=== PATIENT | female | born 1945 | race Caucasian/White ===

== ENCOUNTER 2020-07-16 08:53 | Emergency (ER) | payer MEDICARE, BC ==
--- NOTE | 2020-07-16 09:08 | EDM.PDOC ---
ED HPI GENERAL MEDICAL PROBLEM - General Chief Complaint: Cardiovascular Problem Stated Complaint: LOW BLOOD LEVEL SENT BY [facility] Time Seen by Provider: 07/16/20 09:06 - History of Present Illness INITIAL COMMENTS - FREE TEXT/NARRATIVE: 75-year-old female presents to the emergency room for a blood transfusion. Patient was seen in the surgery clinic over at [place] by Dr. Delong team patient is on chronic Plavix therapy and aspirin and has was found to have a low hemoglobin hematocrit. She is anticipating a colonoscopy coming up. The patient thought this was scheduled for Monday however from discussion with Dr. Hinds earlier today it was my understanding he may try and move this up to tomorrow. Patient has a cardiac history however she is ambulatory does not have breathing difficulties with ambulation and is fully functional. Patient takes Plavix she states once every other day and aspirin every other day. Labs done this morning show a hemoglobin of 7.2 and hematocrit of 24.3. With discussion with surgery it is thought best that the patient received a single unit of packed red cells. - Related Data Allergies Allergy/AdvReac Type Severity Reaction Status Date / Time No Known Allergies Allergy Verified 07/16/20 09:01 Home Meds: Home Meds Aspirin 81 mg PO BRK 08/31/16 [History] Cholecalciferol (Vitamin D3) [Vitamin D] 5,000 unit PO DAILY 08/31/16 [History] Clopidogrel [Plavix] 75 mg PO ASDIRECTED 08/31/16 [History] Fish Oil/DHA/EPA [Fish Oil 1,200 MG] 1 cap PO BID 08/31/16 [History] Multivitamin with Minerals [Multiple Vitamin] 1 tab PO DAILY 08/31/16 [History] Pravastatin [Pravachol] 40 mg PO BEDTIME 08/31/16 [History] Ubidecarenone [Coq-10] 400 mg PO BEDTIME 08/31/16 [History] amLODIPine [Norvasc] 5 mg PO DAILY 08/31/16 [History] hydroCHLOROthiazide [Hydrochlorothiazide] 12.5 mg PO DAILY 08/31/16 [History] Potassium Chloride [Klor-Con M20] 20 meq PO BID #4 tab.er 07/16/20 [Rx] Past Medical History HEENT History: Reports: Impaired Vision Other HEENT History: wears glasses Cardiovascular History: Reports: High Cholesterol - Past Surgical History Cardiovascular Surgical History: Reports: Other (See Below) Social & Family History - Caffeine Use Caffeine Use: Reports: Coffee ED ROS GENERAL - Review of Systems Review Of Systems: See Below Constitutional: Reports: No Symptoms Respiratory: Reports: No Symptoms Cardiovascular: Reports: No Symptoms GI/Abdominal: Reports: No Symptoms : Reports: No Symptoms Musculoskeletal: Reports: No Symptoms Neurological: Reports: No Symptoms ED EXAM, GENERAL - Physical Exam Exam: See Below Exam Limited By: No Limitations General Appearance: Alert, No Apparent Distress Head: Atraumatic, Normocephalic Neck: Normal Inspection, Supple, Non-Tender, Full Range of Motion Respiratory/Chest: No Respiratory Distress, Lungs Clear, Normal Breath Sounds Cardiovascular: Regular Rate, Rhythm, No Edema, No Murmur GI/Abdominal: Normal Bowel Sounds, Soft, Non-Tender Extremities: Normal Inspection, No Pedal Edema Neurological: Alert, Oriented, Normal Cognition Course - Vital Signs Last Recorded V/S: Last Vital Signs Temp 36.9 C 07/16/20 15:21 Pulse 69 07/16/20 15:21 Resp 20 07/16/20 15:21 BP 97/75 07/16/20 15:21 Pulse Ox 96 07/16/20 14:39 - Orders/Labs/Meds Orders: Active Orders 24 hr Category Date Time Status Sodium Chloride 0.9% [Normal Saline] 250 ml Med 07/16/20 12:15 Active IV ASDIRECTED Transfuse RBC [Transfuse Red Blood Cells] [COMM] Stat Oth 07/16/20 09:37 Ordered Medication Orders Sodium Chloride (Normal Saline) 250 mls @ 10 mls/hr IV ASDIRECTED [facility] Last Admin: 07/16/20 13:53 Dose: 10 mls/hr Documented by: EDIE Labs: Laboratory Tests 07/16/20 07/16/20 07/16/20 Range/Units 09:10 09:10 12:21 Sodium 138 (136-145) mEq/L Potassium 2.7 L (3.5-5.1) mEq/L Chloride 100 (98-107) mEq/L Carbon Dioxide 26 (21-32) mEq/L Anion Gap 14.7 (5-15) BUN 14 (7-18) mg/dL Creatinine 0.9 (0.55-1.02) mg/dL Est Cr Clr Drug Dosing 35.34 mL/min Estimated GFR (MDRD) > 60 (>60) mL/min BUN/Creatinine Ratio 15.6 (14-18) Glucose 129 H (83-115) mg/dL Calcium 9.1 (8.5-10.1) mg/dL Blood Type O NEGATIVE Gel Antibody Screen Negative Crossmatch See Detail See Detail Meds: Medications Generic Name Dose Route Start Last Admin Trade Name Freq PRN Reason Stop Dose Admin Sodium Chloride 250 mls @ 10 mls/hr 07/16/20 12:15 07/16/20 13:53 Normal Saline IV 10 mls/hr ASDIRECTED LAURA Administration Discontinued Medications Generic Name Dose Route Start Last Admin Trade Name Freq PRN Reason Stop Dose Admin Potassium Chloride 10 meq/ 100 mls @ 100 mls/hr 07/16/20 10:30 07/16/20 11:47 Premix IV 07/16/20 12:29 100 mls/hr Q1H LAURA Administration Potassium Chloride 40 meq 07/16/20 10:22 07/16/20 10:33 Klor-Con M20 PO 07/16/20 10:23 40 meq ONETIME ONE Administration - Re-Assessments/Exams Free Text/Narrative Re-Assessment/Exam: 07/16/20 15:44 The patient is nearing completion of her transfusion at this point. I was able to discuss the situation with Dr. Hinds,, who is now planning on doing the colonoscopy next week probably on Monday because the patient is on Plavix and she needs to stay off this before having any instrumentation done. Patient's potassium was found to be low at 2.7. She received 40 mEq p.o. here and 20 mEq through the IV. I will discharge her with 20 mEq to take twice daily for 2 days. Patient has not had any breathing difficulties with the transfusion no shortness of breath repeat examination show absolutely clear breath sounds bilaterally. Heart is regular rate rhythm. Extremities no hint of edema. Departure - Departure Time of Disposition: 15:46 Disposition: Home, Self-Care 01 Clinical Impression: Anemia Referrals: Inocencia Garrett NP [Primary Care Provider] - Forms: ED Department Discharge Additional Instructions: Return to the emergency room with any questions problems or worsening symptoms. Follow-up with Dr. Hinds as directed and scheduled. You have been started on potassium he will take 1 tablet twice daily for 2 days starting tomorrow this is sent to [place] [facility] in [place]. Sepsis Event Note (ED) - Focused Exam Vital Signs: Vital Signs Temp Temp Pulse Resp BP Pulse Ox 07/16/20 15:21 36.9 C 69 20 97/75 07/16/20 14:39 36.8 C 70 18 126/50 L 96 07/16/20 14:38 36.8 C 68 18 126/50 L 96 07/16/20 14:18 36.5 C 69 18 118/47 L 07/16/20 14:03 36.8 C 74 18 130/55 L 07/16/20 13:48 36.4 C 67 18 123/49 L 96 07/16/20 10:37 70 16 110/41 L 97 07/16/20 09:06 36.4 C 77 18 129/30 L 96 - My Orders Last 24 Hours: My Active Orders 07/16/20 09:37 Transfuse RBC [Transfuse Red Blood Cells] [COMM] Stat 07/16/20 12:15 Sodium Chloride 0.9% [Normal Saline] 250 ml IV ASDIRECTED - Assessment/Plan Last 24 Hours: My Active Orders 07/16/20 09:37 Transfuse RBC [Transfuse Red Blood Cells] [COMM] Stat 07/16/20 12:15 Sodium Chloride 0.9% [Normal Saline] 250 ml IV ASDIRECTED
[2020-07-16] MEDS ORDERED: Potassium Chloride 20 MEQ Tab.ER PO ONE (10:22)
[2020-07-16] MEDS: Potassium Chloride 10 MEQ in Premix Bag 1 BAG IV SCH ×2 (10:35→11:47)
[2020-07-16] MEDS ORDERED: Sodium Chloride 0.9% 250 ML IV SCH (12:15)
[2020-07-16 16:11] VITALS: BP 129/80; PULSE 79
== END 2020-07-16 16:34 | disposition home or self-care (01) ==
LOC: JD.ED 08:53
DX: D64.9 Anemia, unspecified (principal); E78.00 Pure hypercholesterolemia, unspecified; Z79.82 Long term (current) use of aspirin; Z79.02 Long term (current) use of antithrombotics/antiplatelets; Z79.899 Other long term (current) drug therapy
CPT/HCPCS: 36415; 36430; 80048; 86850; 86900; 86901; 86922; 96365; 96366; 99284; A9270; J3480; J7050; P9016; 99283

== ENCOUNTER 2020-07-22 10:17 | Day surgery (SDC) | payer MEDICARE, BC ==
[~2020-07-22 10:17] MED LIST: Lactated Ringers 1,000 ML IV SCH; Lidocaine 1%/Sod Bicarbonate in NS 8.4% 1 ML Syringe IDERM PRN; Sodium Chloride 0.9% 10 ML Syringe FLUSH PRN
--- NOTE | 2020-07-22 10:35 | PCM.PREANE ---
Preanesthetic Assessment - Procedure Proposed Procedure: EGD/Colonoscopy - Anesthesia/Transfusion/Family Hx Anesthesia History: Prior Anesthesia Without Reaction Family History of Anesthesia Reaction: No Transfusion History: Prior Transfusion Without Reaction - Review of Systems General: No Symptoms Pulmonary: Cough Cardiovascular: No Symptoms Gastrointestinal: Abdominal Pain ("hunger pain") Neurological: No Symptoms Other: Reports: None - Physical Assessment NPO Status Date: 07/21/20 NPO Status Time: 00:00 Height: 1.63 m Weight: 37.5 kg ASA Class: 3 Mental Status: Alert & Oriented x3 Airway Class: Mallampati = 1 Dentition: Reports: Normal Dentition, Partial (bottom), [place](s), [place] Thyro-Mental Finger Breadths: 3 Mouth Opening Finger Breadths: 3 ROM/Head Extension: Full Lungs: Clear to Auscultation, Normal Respiratory Effort Cardiovascular: Regular Rate, Regular Rhythm - Allergies Allergies/Adverse Reactions: Allergies Allergy/AdvReac Type Severity Reaction Status Date / Time No Known Allergies Allergy Verified 07/21/20 13:29 - Blood Blood Available: No Product(s) Available: None - Anesthesia Plan Pre-Op Medication Ordered: None - Acknowledgements Anesthesia Type Planned: MAC Pt an Appropriate Candidate for the Planned Anesthesia: Yes Alternatives and Risks of Anesthesia Discussed w Pt/Guardian: Yes Pt/Guardian Understands and Agrees with Anesthesia Plan: Yes PreAnesthesia Questionnaire HEENT History: Reports: Cataract, Impaired Vision Other HEENT History: wears glasses Cardiovascular History: Reports: High Cholesterol, Hypertension, Other (See Below) Other Cardiovascular History: hypertensive heart diesase, carotid artery stenosis, subclavian arterial stenosis, left carotid endarterectomy Respiratory History: Reports: COPD, Other (See Below) Other Respiratory History: panlobular emphysema Gastrointestinal History: Reports: None Genitourinary History: Reports: Other (See Below) Other Genitourinary History: blood in urine STAMP MOUNTER History: Reports: Musculoskeletal History: Reports: None Neurological History: Reports: TIA, Other (See Below) Other Neuro History: cerebrovascular disease Psychiatric History: Reports: None Endocrine/Metabolic History: Reports: None Hematologic History: Reports: None Immunologic History: Reports: None Oncologic (Cancer) History: Reports: Cervix, Uterine Dermatologic History: Reports: None - Infectious Disease History Infectious Disease History: Reports: None - Past Surgical History Head Surgeries/Procedures: Reports: None HEENT Surgical History: Reports: Adenoidectomy, Cataract Surgery, Oral Surgery, Tonsillectomy Cardiovascular Surgical History: Reports: Carotid Endarterectomy, Other (See Below) Other Cardiovascular Surgeries/Procedures: bilateral femoral stents Respiratory Surgical History: Reports: None GI Surgical History: Reports: Appendectomy, Colonoscopy Female Surgical History: Reports: Hysterectomy Male Surgical History: Reports: None Endocrine Surgical History: Reports: None Neurological Surgical History: Reports: None Oncologic Surgical History: Reports: None Dermatological Surgical History: Reports: None - SUBSTANCE USE Tobacco Use Status *Q: Current Every Day Tobacco User Tobacco Use Within Last Twelve Months: Cigarettes Second Hand Smoke Exposure: No Days Per Week of Alcohol Use: 0 Number of Drinks Per Day: 0 Total Drinks Per Week: 0 Recreational Drug Use History: No - HOME MEDS Home Medications: Home Meds Aspirin 81 mg PO Q48H 08/31/16 [History] Cholecalciferol (Vitamin D3) [Vitamin D] 5,000 unit PO DAILY 08/31/16 [History] Clopidogrel [Plavix] 75 mg PO Q48H 08/31/16 [History] Fish Oil/DHA/EPA [Fish Oil 1,200 MG] 1 cap PO BID 08/31/16 [History] Multivitamin with Minerals [Multiple Vitamin] 1 tab PO DAILY 08/31/16 [History] Pravastatin [Pravachol] 40 mg PO BEDTIME 08/31/16 [History] Ubidecarenone [Coq-10] 400 mg PO BEDTIME 08/31/16 [History] amLODIPine [Norvasc] 5 mg PO DAILY 08/31/16 [History] hydroCHLOROthiazide [Hydrochlorothiazide] 12.5 mg PO DAILY 08/31/16 [History] Docusate Sodium [Stool Softener] 100 mg PO ASDIRECTED PRN 07/21/20 [History] Pantoprazole Sodium [Protonix] 40 mg PO DAILY 07/21/20 [History] Psyllium Husk (With Sugar) [Metamucil Free Powder] 1 tsp PO DAILY 07/21/20 [History] Turmeric Root Extract [Turmeric Curcumin] 500 mg PO DAILY 07/21/20 [History] - CURRENT (IN HOUSE) MEDS Current Meds: Current Medications Lactated Ringer's (Ringers, Lactated) 1,000 mls @ 125 mls/hr IV ASDIRECTED LAURA Stop: 07/22/20 23:00 Lidocaine/Sodium Bicarbonate (Buffered Lidocaine 1% In Ns 8.4%) 0.25 ml IDERM ONETIME PRN PRN Reason: Prior to IV Start Stop: 07/22/20 18:00 Sodium Chloride (Saline Flush) 10 ml FLUSH ASDIRECTED PRN PRN Reason: Keep Vein Open Stop: 07/22/20 18:00
[2020-07-22] MEDS ORDERED: Propofol 200 MG/20 ML SDV ONE ×2 (11:22→13:31)
[2020-07-22] MEDS ORDERED: Lidocaine 1% 4 ML ONE (11:23)
[2020-07-22] MEDS ORDERED: fentaNYL 100 MCG/2 ML SDV ONE (13:45)
[2020-07-22] MEDS ORDERED: Lidocaine 1% 2 ML ONE (13:50)
[2020-07-22] MEDS ORDERED: EPINEPHrine 1 MG/ML SDV ONE (13:55)
--- NOTE | 2020-07-22 14:51 | PCM48HPAN ---
Post Anesthesia Note - EVALUATION WITHIN 48HRS OF ANESTHETIC Vital Signs in Normal Range: Yes Patient Participated in Evaluation: Yes Respiratory Function Stable: Yes Airway Patent: Yes Cardiovascular Function Stable: Yes Hydration Status Stable: Yes Pain Control Satisfactory: Yes Nausea and Vomiting Control Satisfactory: Yes Mental Status Recovered: Yes Vital Signs: Last Vital Signs Temp 98.2 F 07/22/20 14:43 Pulse 65 07/22/20 14:43 Resp 12 07/22/20 14:43 BP 155/49 H 07/22/20 14:43 Pulse Ox 99 07/22/20 14:43
[2020-07-22 16:30] VITALS: BP 147/62; PULSE 75
--- NOTE | 2020-07-22 17:22 | PROC ---
DATE OF OPERATION: 07/22/2020 SURGEON: Sandi Hinds MD PREOPERATIVE DIAGNOSIS: Acute blood loss anemia. POSTOPERATIVE DIAGNOSIS: Acute blood loss anemia. PROCEDURES: 1. Esophagogastroduodenoscopy. 2. Colonoscopy. ESTIMATED BLOOD LOSS: Minimal. ANESTHESIA: Monitored anesthesia care. COMPLICATIONS: None. INDICATION AND CONSENT: The patient is a 75-year-old female with history of recent carotid stent. The patient is currently on aspirin and Plavix. The patient developed acute blood loss anemia last week that required transfusion of hemoglobin of 6.7. The patient responded well to transfusion. Hemoglobin responded to 8.7, then went to 9.5, and 9.5 in the last check on Monday. We recommend the patient to undergo EGD and colonoscopy to establish the source of bleeding. The patient was told to hold Plavix and continue taking aspirin due to recent stent, and the patient then presented today for EGD and colonoscopy. Did discuss the risks, benefits, and alternatives, and informed consent was obtained. The patient is here today with her [id number]. DETAILS OF PROCEDURE: The patient was taken to the procedure room, placed in left lateral decubitus position. Following induction of monitored anesthesia care, procedure was begun with an EGD. Scope was inserted into the mouth and taken all the way to the 2nd portion of the duodenum. In the stomach, we noted hemorrhagic gastritis in the fundus of the stomach. There were multiple areas of small blood clots as well as small petechiae, but no active bleeding in this area. Then, the scope was taken down to the duodenum. In the 1st portion of duodenum, we noted an area of active bleeding. There was fresh blood in this area. This seemed to be a 5 mm area of telangiectasia with underlying pulsating vessel. The vessel was not visible and there was no blood clot, just some fresh blood in this area. We proceeded to the 2nd portion of duodenum which was normal. Then we came back to the 1st portion duodenum, examined this area some more. There were no other areas of ectasia. A decision was made to place some clips due to underlying pulsatile vessel, 1 clip was placed. There was a little bit of oozing after placing 1 clip. A 2nd clip was placed. Again, there was oozing after placement of the 2nd clip. 9 mL of epinephrine were injected, concentration of epinephrine was 1:200,000. This stopped the bleeding and we were able to visualize the area. 1 additional clip was placed to be able to clearly stop the bleeding. After this, there was small amount of oozing, and then the oozing stopped indicating hemostasis. Once this was accomplished, we waited and viewed this area for several minutes. There was no additional area of active bleeding. We could not biopsy this area due to concern for bleeding activity. We went back into the stomach again. In the fundus of the stomach, there were areas of petechiae that had bled, but there was no active bleeding. The patient does not have hiatal hernia. Air was suctioned out. Esophagus otherwise appears normal. This concluded this portion of the procedure. We proceeded with colonoscopy. Scope was inserted into the anus after examination of the perianal area, which was normal, and taken all the way to the cecum. Appendiceal orifice and the ileocecal valve were photographed. Right opposite to the ileocecal valve, there was about 1.5 cm flat lesion that was found in this area. This lesion was biopsied. Right after the biopsy, there was quite a bit of pulsatile oozing from the biopsy area. Therefore, 1 clip was placed to stop the bleeding, which was successfully stopped. Given the ease of bleeding, we decided to stop biopsies and just had 1 biopsy that was taken. We continued to remove the scope slowly, examining the entirety of the mucosa. There were no other areas concerning for bleeding. There were multiple other small polyps that were found in the transverse colon as well as in the sigmoid and rectum. These were left in place as they were small and we were concerned for continued bleeding. Therefore, the procedure was concluded. On retroflexion, there were no other abnormalities. Air was suctioned out and the scope was removed. Therefore, the patient has source of bleeding in the stomach and 1st portion of duodenum. The patient is advised to stop Plavix; however, the patient may still need to take aspirin due to recent carotid stent that was placed. We checked the blood levels today and Hgb was stable at 9.4. The patient will be allowed to go home. The patient will be put on b.i.d. PPIs, misoprostol, and Carafate for the next month. If the patient returns home, she will check another blood level on Monday07/24/2010 and follow up with me in 1 week to see how she is doing. This plan was discussed with the patient. BALBIR /[id number] JOSE
== END 2020-07-22 16:55 | disposition home or self-care (01) ==
LOC: JD.SDS 10:17
PROVIDERS: ATTEND Surgery
DX: D12.2 Benign neoplasm of ascending colon (principal); D62 Acute posthemorrhagic anemia; I25.10 Atherosclerotic heart disease of native coronary artery without angina pectoris; I11.9 Hypertensive heart disease without heart failure; I73.9 Peripheral vascular disease, unspecified; J44.9 Chronic obstructive pulmonary disease, unspecified; F17.210 Nicotine dependence, cigarettes, uncomplicated; E78.00 Pure hypercholesterolemia, unspecified; Z79.82 Long term (current) use of aspirin; Z79.02 Long term (current) use of antithrombotics/antiplatelets; Z98.890 Other specified postprocedural states; Z86.73 Personal history of transient ischemic attack (TIA), and cerebral infarction without residual deficits; Z79.899 Other long term (current) drug therapy
CPT/HCPCS: 36415; 43255; 45380; 85025; J0171; J2001; J2704; J3010; J7120; 00813; 88305

== ENCOUNTER 2022-05-29 15:36 | Emergency (ER) | payer MEDICARE, BC ==
[2022-05-29 16:51] VITALS: BP 170/56; PULSE 77
[2022-05-29] MEDS ORDERED: Sodium Chloride 0.9% 10 ML Syringe FLUSH PRN (17:07)
[2022-05-29 18:58] LABS: ESTIMATED GFR 39 mL/min (>60)
== END 2022-05-29 19:24 | disposition home or self-care (01) ==
LOC: JD.ED 15:36
DX: R42 Dizziness and giddiness (principal); N28.9 Disorder of kidney and ureter, unspecified; E78.00 Pure hypercholesterolemia, unspecified; I10 Essential (primary) hypertension; F17.210 Nicotine dependence, cigarettes, uncomplicated; Z79.82 Long term (current) use of aspirin; Z79.899 Other long term (current) drug therapy; Z90.49 Acquired absence of other specified parts of digestive tract
CPT/HCPCS: 36415; 70450; 70450-26; 80053; 83735; 84484; 85025; 93005; 93010; 99284